=== PATIENT | female | born 1965 | race Caucasian/White ===

== ENCOUNTER → 2020-07-13 10:12 | Outpatient (BNVA) | payer OTHER, SELFPAY | PROVIDERS: PCP Internal Medicine; Visit Provider Hospitalist | DX: Z76.89 Persons encountering health services in other specified circumstances (principal) ==

== ENCOUNTER 2021-07-31 10:47 | Outpatient (REF) | payer OTHER, SELFPAY ==
--- NOTE | ~2021-07-31 | XR_ITS ---
EXAMINATION: XR CHEST CLINICAL INFORMATION: Bronchitis COMPARISON: None TECHNIQUE: 2 views of the chest were obtained. FINDINGS: No significant abnormality is noted involving the heart, lungs, mediastinum, bony thorax or soft tissues. XR/XR chest 2V IMPRESSION: Unremarkable examination.
[2021-07-31 12:10] LABS: MANUAL DIFF FLAG NO
[2021-07-31 12:14] LABS: Basophils Percent Auto 0.6 % (0-2); Eosinophils Absolute Auto 0.1 X10*3/uL (0.0-0.4); Eosinophils Percent Auto 1.6 % (0-4); Hematocrit 31.6 % (37.0-47.0); Imm Gran Abs Auto 0.01 X10*3/uL (0.00-0.03); Imm Gran Pct Auto 0.2 % (0.0-0.4); Lymphocytes Absolute Auto 1.1 X10*3/uL (1.2-4.9); Lymphocytes Percent Auto 22.2 % (20-40); Mean Corpuscular HGB Conc 31.6 g/dl (31.0-35.0); Mean Corpuscular Hemoglobin 26.2 pg (27.0-33.0); Mean Corpuscular Volume 82.7 fL (80.0-98.0); Mean Platelet Volume 10.7 fL (9.4-12.3); Monocytes Absolute Auto 0.3 X10*3/uL (0.1-1.2); Monocytes Percent Auto 5.8 % (2-11); Neutrophils Absolute Auto 3.5 x10*3/uL (2.0-8.3); Neutrophils Percent Auto 69.6 % (45-73); Platelet Count 309 X10*3/uL (160-400); Red Blood Count 3.82 X10*6/uL (4.20-5.50)
[2021-07-31 12:36] LABS: C Reactive Protein 0.26 mg/dL (< or = 0.50)
[2021-08-01 04:20] LABS: SARS COV2 IgG Negative (Negative)
[2021-08-01 06:22] LABS: Immunoglobulin E 2 kU/L (<OR=114)
[2021-08-01 18:31] LABS: Immunoglobulin G Subclass 1 445 mg/dL (382-929); Immunoglobulin G Subclass 2 362 mg/dL (241-700); Immunoglobulin G Subclass 3 53 mg/dL (22-178); Immunoglobulin G Subclass 4 20.5 mg/dL (4-86); Immunoglobulin G Total 927 mg/dL (600-1640)
[2021-08-03 06:51] LABS: Anti DNA DS Antibody <1 IU/mL
== END 2021-07-31 10:48 | disposition home or self-care (01) ==
LOC: HO.XRAY 10:47
PROVIDERS: PCP Internal Medicine; Visit Provider Hospitalist
DX: Z20.822 Contact with and (suspected) exposure to COVID-19 (principal); J30.9 Allergic rhinitis, unspecified; J45.41 Moderate persistent asthma with (acute) exacerbation; J40 Bronchitis, not specified as acute or chronic; M32.9 Systemic lupus erythematosus, unspecified
CPT/HCPCS: 36415; 71046; 82784; 82785; 85025; 86140; 86225; 86769

== ENCOUNTER 2022-02-21 14:31 | Outpatient (REF) | payer OTHER, SELFPAY ==
[2022-02-21 14:58] LABS: MANUAL DIFF FLAG NO
[2022-02-21 15:28] LABS: Basophils Absolute Auto 0.1 X10*3/uL (0.0-0.2); Eosinophils Absolute Auto 0.2 X10*3/uL (0.0-0.4); Eosinophils Percent Auto 3.9 % (0-4); Hematocrit 33.9 % (37.0-47.0); Hemoglobin 10.9 g/dl (12.0-16.0); Imm Gran Abs Auto 0.01 X10*3/uL (0.00-0.03); Imm Gran Pct Auto 0.2 % (0.0-0.4); Lymphocytes Absolute Auto 1.4 X10*3/uL (1.2-4.9); Lymphocytes Percent Auto 26.6 % (20-40); Mean Corpuscular HGB Conc 32.2 g/dl (31.0-35.0); Mean Corpuscular Hemoglobin 26.3 pg (27.0-33.0); Mean Corpuscular Volume 81.9 fL (80.0-98.0); Mean Platelet Volume 11.3 fL (9.4-12.3); Monocytes Absolute Auto 0.3 X10*3/uL (0.1-1.2); Monocytes Percent Auto 6.1 % (2-11); Neutrophils Absolute Auto 3.2 x10*3/uL (2.0-8.3); Neutrophils Percent Auto 62.2 % (45-73); Platelet Count 301 X10*3/uL (160-400); Red Blood Count 4.14 X10*6/uL (4.20-5.50); Red Cell Distribution Width 16.2 % (11.0-16.0); White Blood Count 5.1 X10*3/uL (4.8-10.8)
[2022-02-21 15:45] LABS: D Dimer High Sensitivity < 150 NG/ML
[2022-02-21 15:55] LABS: Anion Gap 16 (12-20); Blood Urea Nitrogen 26 mg/dL (9-16); Calcium 10.2 mg/dL (8.4-10.2); Carbon Dioxide 28 mmol/L (22-29); Chloride 100 mmol/L (96-108); Estimated Glomerular Filt Rate 24; Glucose Random 174 mg/dL (60-115); Potassium 4.6 mmol/L (3.3-5.1); Sodium 139 mmol/L (135-145)
[2022-02-21 16:18] LABS: Erythrocyte Sedimentation Rate 13 MM/HR (0-20)
[2022-02-22 11:47] LABS: Complement C3 84 mg/dL (83-193)
[2022-02-22 13:08] LABS: Anti DNA DS Antibody <1 IU/mL
[2022-02-23 13:25] LABS: SARS COV2 IgG NEGATIVE
[2022-02-24 07:02] LABS: Immunoglobulin E <2 kU/L (<OR=114)
== END 2022-02-21 14:32 | disposition home or self-care (01) ==
LOC: HO.LAB 14:31
PROVIDERS: PCP Internal Medicine; Visit Provider Hospitalist
DX: Z20.822 Contact with and (suspected) exposure to COVID-19 (principal); R07.81 Pleurodynia; R06.00 Dyspnea, unspecified
CPT/HCPCS: 36415; 80048; 82785; 85025; 85379; 85652; 86160; 86225; 86769

== ENCOUNTER 2022-02-22 12:49 | Outpatient (REF) | payer OTHER, SELFPAY ==
--- NOTE | ~2022-02-22 | XR_ITS ---
EXAMINATION: XR CHEST CLINICAL INFORMATION: Dyspnea COMPARISON: 07/31/2021 TECHNIQUE: 2 views of the chest were obtained. FINDINGS: Lungs are well-inflated and clear. Trachea is midline in position. No interstitial disease, consolidation or mass. No pleural effusion or pneumothorax. Cardiac silhouette and pulmonary vessels are normal in size. The mediastinum and mello have normal contour. Mild spondylosis of the thoracic spine. XR/XR chest 2V IMPRESSION: No acute cardiopulmonary abnormality.
== END 2022-02-22 12:50 | disposition home or self-care (01) ==
LOC: HO.XRAY 12:49
PROVIDERS: PCP Internal Medicine; Visit Provider Hospitalist
DX: R07.81 Pleurodynia (principal); R06.00 Dyspnea, unspecified
CPT/HCPCS: 71046

== ENCOUNTER 2022-05-24 16:50 | Emergency (ER) | payer OTHER, SELFPAY ==
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
--- NOTE | 2022-05-24 16:53 | ECG_ITS ---
Test Reason : hypoglycemia Blood Pressure : / mmHG Vent. Rate : 089 BPM Atrial Rate : 089 BPM P-R Int : 142 ms QRS Dur : 062 ms QT Int : 376 ms P-R-T Axes : 061 061 042 degrees QTc Int : 457 ms Normal sinus rhythm Normal ECG No previous ECGs available Referred By: Yina Maria Electronically Signed By:ANNIKA ZARAGOZA MD
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
[2022-05-24 17:00] VITALS: BP 160/96; PULSE 80; O2SAT 97
[2022-05-24 17:01] VITALS: BP 217/97; PULSE 86; RESP 18; O2SAT 99; BMI 28.3
[2022-05-24 17:21] LABS: Glucose, Whole Blood 66 mg/dL (60-115)
[2022-05-24] MEDS: 0.9 % Sodium Chloride 1,000 ML 999 ML IV (17:55)
[2022-05-24 18:06] LABS: Glucose, Whole Blood 64 mg/dL (60-115)
[2022-05-24 18:48] LABS: MANUAL DIFF FLAG NO
[2022-05-24 18:50] LABS: Basophils Absolute Auto 0.1 X10*3/uL (0.0-0.2); Basophils Percent Auto 0.9 % (0-2); Eosinophils Absolute Auto 0.1 X10*3/uL (0.0-0.4); Eosinophils Percent Auto 1.6 % (0-4); Hematocrit 32.4 % (37.0-47.0); Hemoglobin 10.5 g/dl (12.0-16.0); Imm Gran Abs Auto 0.02 X10*3/uL (0.00-0.03); Imm Gran Pct Auto 0.3 % (0.0-0.4); Lymphocytes Absolute Auto 0.8 X10*3/uL (1.2-4.9); Mean Corpuscular HGB Conc 32.4 g/dl (31.0-35.0); Mean Corpuscular Hemoglobin 26.6 pg (27.0-33.0); Mean Corpuscular Volume 82.2 fL (80.0-98.0); Mean Platelet Volume 10.7 fL (9.4-12.3); Monocytes Absolute Auto 0.5 X10*3/uL (0.1-1.2); Neutrophils Absolute Auto 5.6 x10*3/uL (2.0-8.3); Neutrophils Percent Auto 79.2 % (45-73); Platelet Count 247 X10*3/uL (160-400); Red Blood Count 3.94 X10*6/uL (4.20-5.50); Red Cell Distribution Width 16.1 % (11.0-16.0)
[2022-05-24 19:01] LABS: INTERNATIONAL NORM RATIO 0.9 (0.9-1.1); Prothrombin Time 10.3 SEC (10.0-13.1)
[2022-05-24 19:03] VITALS: BP 188/81; PULSE 89; RESP 15; TEMP 37.1; O2SAT 98
[2022-05-24 19:05] LABS: COVID-19 Test Negative (Negative)
[2022-05-24 19:06] LABS: Alanine Aminotransferase 32 U/L (0-31); Albumin Level 4.1 g/dL (3.5-5.0); Alkaline Phosphatase 101 U/L (39-117); Anion Gap 18 (12-20); Aspartate Amino Transferase 38 U/L (5-31); Bilirubin Total 0.4 mg/dL (0.0-1.0); Blood Urea Nitrogen 20 mg/dL (9-16); Calcium 9.4 mg/dL (8.4-10.2); Carbon Dioxide 22 mmol/L (22-29); Chloride 107 mmol/L (96-108); Creatinine Clr Calc Pharmacy 52.4; Estimated Glomerular Filt Rate 44; Glucose Random 74 mg/dL (60-115); Magnesium 1.9 mg/dL (1.6-2.6); Potassium 3.6 mmol/L (3.3-5.1); Sodium 143 mmol/L (135-145); Total Protein 6.5 g/dL (6.5-8.0)
[2022-05-24 19:12] LABS: Glucose, Whole Blood 75 mg/dL (60-115)
[2022-05-24 19:26] LABS: HCG Quantitative 3 mIU/mL
[2022-05-24] MEDS: Ketorolac Tromethamine 15 MG/ML VIAL 30 MG IVPUSH (21:31)
[2022-05-24 21:38] LABS: Troponin-I High Sensitivity < 3.5 ng/L (<3.5-17.0)
[2022-05-24 23:12] VITALS: BP 157/69; PULSE 91; RESP 16; O2SAT 99
== END 2022-05-24 23:15 | disposition home or self-care (01) ==
PROVIDERS: Physician Assistant; Emergency Provider Emergency Medicine
DX: E16.2 Hypoglycemia, unspecified (principal); R42 Dizziness and giddiness; S13.4XXA Sprain of ligaments of cervical spine, initial encounter; S06.0X0A Concussion without loss of consciousness, initial encounter; V43.52XA Car driver injured in collision with other type car in traffic accident, initial encounter; Z20.822 Contact with and (suspected) exposure to COVID-19; Y93.89 Activity, other specified; Y92.414 Local residential or business street as the place of occurrence of the external cause; Y99.9 Unspecified external cause status
CPT/HCPCS: 36415; 70450; 71250; 72125; 74176; 80053; 82947; 83735; 84484; 84702; 85025; 85610; 87635; 93005; 96361; 96374; 99284; 99285; J1885

== ENCOUNTER 2022-05-25 09:46 | Outpatient (REF) | payer OTHER, SELFPAY ==
[2022-05-25 11:07] LABS: Lactate Dehydrogenase 296 U/L (122-220)
[2022-05-25 11:26] LABS: Cortisol Random 8.7 ug/dL
[2022-05-25 11:33] LABS: Erythrocyte Sedimentation Rate 12 MM/HR (0-20)
[2022-05-29 11:16] LABS: Prot Elec - Albumin 4.1 g/dL (3.8-4.8); Prot Elec - Alpha1 0.3 g/dL (0.2-0.3); Prot Elec - Alpha2 0.7 g/dL (0.5-0.9); Prot Elec - Beta 1 0.4 g/dL (0.4-0.6); Prot Elec - Beta 2 0.2 g/dL (0.2-0.5); Prot Elec - Gamma 0.8 g/dL (0.8-1.7); Prot Elec - Total Protein 6.6 g/dL (6.1-8.1)
[2022-05-30 14:41] LABS: IgA 152 mg/dL (47-310); IgG 861 mg/dL (600-1640); IgM 92 mg/dL (50-300)
== END 2022-05-25 09:47 | disposition home or self-care (01) ==
LOC: HO.LAB 09:46
PROVIDERS: Visit Provider Hospitalist
DX: C90.00 Multiple myeloma not having achieved remission (principal)
CPT/HCPCS: 36415; 82533; 82784; 83615; 84165; 85652; 86334

== ENCOUNTER 2022-05-26 11:15 | Outpatient (REF) | payer OTHER, SELFPAY ==
[2022-05-31 10:26] LABS: PEU-Protein Creat Ratio Rand 0.576 (0.024-0.184); PEU-Rand. Prot/Creat Ratio 576 mg/g creat (24-184); PEU-Random Ur. Gamma Globulin 7 %; PEU-Random Urine A1 Globulin 2 %; PEU-Random Urine A2 Globulin 1 %; PEU-Random Urine Albumin 84 %; PEU-Random Urine Beta Globulin 6 %; PEU-Random Urine Creatinine 33 mg/dL (20-275); PEU-Random Urine Protein 19 mg/dL (5-24)
== END 2022-05-26 11:16 | disposition home or self-care (01) ==
LOC: HO.LNP 11:15
PROVIDERS: Visit Provider Hospitalist
DX: C90.00 Multiple myeloma not having achieved remission (principal)
CPT/HCPCS: 82570; 84156; 84166

== ENCOUNTER → 2022-09-07 09:44 | Outpatient (BNVA) | payer OTHER, SELFPAY | PROVIDERS: PCP Internal Medicine; Visit Provider Hospitalist | DX: C90.00 Multiple myeloma not having achieved remission (principal) ==

== ENCOUNTER 2023-03-01 09:51 | Outpatient (AMB) | payer OTHER, SELFPAY ==
[2023-03-01 09:53] VITALS: BP 132/76; PULSE 90; O2SAT 99; BMI 30.4
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
== END 2023-03-01 10:16 | disposition home or self-care (01) ==
PROVIDERS: PCP Internal Medicine; Visit Provider Hospitalist
DX: J45.40 Moderate persistent asthma, uncomplicated (principal); J30.9 Allergic rhinitis, unspecified; M32.9 Systemic lupus erythematosus, unspecified; R06.00 Dyspnea, unspecified; R07.81 Pleurodynia
CPT/HCPCS: 99214

== ENCOUNTER → 2023-03-01 09:51 | Outpatient (BNVA) | payer OTHER, SELFPAY | PROVIDERS: Visit Provider Hospitalist | DX: C90.00 Multiple myeloma not having achieved remission (principal); R07.81 Pleurodynia ==

== ENCOUNTER 2023-05-02 15:40 | Outpatient (AMB) | payer OTHER, SELFPAY ==
[2023-05-02 15:44] VITALS: PULSE 89; O2SAT 98; BMI 30.4
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
== END 2023-05-03 09:25 | disposition home or self-care (01) ==
PROVIDERS: PCP Internal Medicine; Visit Provider Hospitalist
DX: J45.40 Moderate persistent asthma, uncomplicated (principal); J30.9 Allergic rhinitis, unspecified; M32.9 Systemic lupus erythematosus, unspecified; R06.09 Other forms of dyspnea; R07.81 Pleurodynia; U07.1 COVID-19; J01.20 Acute ethmoidal sinusitis, unspecified
CPT/HCPCS: 99214

== ENCOUNTER 2023-05-02 15:40 | Outpatient (REF) | payer OTHER, SELFPAY ==
--- NOTE | ~2023-05-02 | XR_ITS ---
EXAMINATION: XR CHEST CLINICAL INFORMATION: Bronchitis COMPARISON: 02/22/2022 TECHNIQUE: 2 views of the chest were obtained. FINDINGS: No significant abnormality is noted involving the heart, lungs, mediastinum, bony thorax or soft tissues. XR/XR chest 2V IMPRESSION: Unremarkable examination with no interval change.
== END 2023-05-02 15:41 | disposition home or self-care (01) ==
LOC: HO.XRAY 15:40
PROVIDERS: PCP Internal Medicine; Visit Provider Hospitalist
DX: J45.40 Moderate persistent asthma, uncomplicated (principal)
CPT/HCPCS: 71046

== ENCOUNTER 2023-10-11 10:06 | Outpatient (AMB) | payer OTHER, SELFPAY ==
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
[2023-10-11 10:17] VITALS: PULSE 88; O2SAT 96
== END 2023-10-11 10:45 | disposition home or self-care (01) ==
PROVIDERS: PCP Internal Medicine; Visit Provider Hospitalist
DX: J45.40 Moderate persistent asthma, uncomplicated (principal); J30.9 Allergic rhinitis, unspecified; M32.9 Systemic lupus erythematosus, unspecified; R06.09 Other forms of dyspnea; R07.81 Pleurodynia
CPT/HCPCS: 99214

== ENCOUNTER → 2023-10-11 10:06 | Outpatient (BNVA) | payer OTHER, SELFPAY | PROVIDERS: PCP Internal Medicine; Visit Provider Hospitalist | DX: C90.00 Multiple myeloma not having achieved remission (principal); R07.81 Pleurodynia ==

== ENCOUNTER 2024-01-01 10:08 | Outpatient (REF) | payer OTHER, SELFPAY ==
--- NOTE | ~2024-01-01 | CT_ITS ---
EXAMINATION: CT CHEST WITHOUT CONTRAST CLINICAL INFORMATION: Pleurodynia. COMPARISON: CT chest 05/24/2022. TECHNIQUE: Multidetector volumetric CT imaging of the chest was done. Axial MIP volume rendering provided. Sagittal and coronal reformatted images were obtained. This CT examination was performed using dose optimization techniques as appropriate, variously including the following: *Automated exposure control *Adjustment of mA and/or kV according to patient size (this includes techniques or standardized protocols for targeted exams where dose is matched to indication/reason for exam; i.e. extremities or head) *Use of iterative reconstruction technique DLP: 184 mGy-cm FINDINGS: LUNGS: The bibasilar atelectasis/scarring is present similar to prior. Lungs are otherwise clear with no evidence of inflammation or nodules. MEDIASTINUM: The mediastinum is normal. CORONARY ARTERY CALCIFICATION: Moderate PLEURA: There is no pleural effusion. No pleural mass or thickening. AXILLA: No lymphadenopathy. UPPER ABDOMEN: Gallbladder is contracted and contains gallstones without evidence of cholecystitis. OSSEOUS STRUCTURES: The previously mentioned diffusely mottled appearance of the bone marrow with lucent lesions throughout has not shown any progression since 05/24/2022. Scattered lytic areas in the spine are again seen and unchanged when compared to the prior study. No rib fractures are seen. CT/CT chest wo IV con IMPRESSION: 1. A cause for the patient's pleurodynia has not been found. 2. Incidental note made of bibasilar atelectasis/scarring, cholelithiasis and stable mottled appearance of the bone marrow. If concern is high for an underlying malignancy, MRI of the spine would be useful. Fleischner guidelines were followed.
== END 2024-01-01 10:09 | disposition home or self-care (01) ==
LOC: HO.CT 10:08
PROVIDERS: PCP Internal Medicine; Visit Provider Hospitalist
DX: R07.81 Pleurodynia (principal); M32.9 Systemic lupus erythematosus, unspecified
CPT/HCPCS: 71250

== ENCOUNTER 2024-07-14 09:43 | Outpatient (AMB) | payer OTHER, SELFPAY ==
[2024-07-14 09:45] VITALS: BP 138/64; PULSE 84; O2SAT 98; BMI 32.3
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
== END 2024-07-14 10:04 | disposition home or self-care (01) ==
PROVIDERS: PCP Internal Medicine; Visit Provider Hospitalist
DX: J45.40 Moderate persistent asthma, uncomplicated (principal); J30.9 Allergic rhinitis, unspecified; M32.9 Systemic lupus erythematosus, unspecified; R06.09 Other forms of dyspnea; R07.81 Pleurodynia
CPT/HCPCS: 99214

== ENCOUNTER → 2024-07-14 09:43 | Outpatient (BNVA) | payer OTHER, SELFPAY | PROVIDERS: PCP Internal Medicine; Visit Provider Hospitalist ==

== ENCOUNTER 2025-01-12 10:03 | Outpatient (AMB) | payer OTHER, SELFPAY ==
--- OUTSIDE RECORDS SUMMARY | 2024-12-08 11:45 | XMS_ITS ---
Author Organization [facility] Address [address] [place] [address] Care Team Providers Care Armhole Baster Jumpbasting Name Role Phone Liset Andrade Primary Care Provider Cathleen Dyer [phone] Encounters Encounter Location Date Provider Diagnosis [address] [place] [address] 12/08/2024 Cathleen Galeano Plan Of Treatment Next Appt Details Provider Name:Cathleen Galeano , 04/06/2025 04:00:00 PM, [address] [facility], [place], [address], Progress Notes * Venus MONTALVO IDOB: [id number] (59 yo F)Acc No.[id number]:12/08/2024 Progress Note Patient: Venus FITCH I Provider: Nazia Galeano DPM :1965 A ge:59 Y S ex:Female Date:12/08/2024 [address] [facility] [id number] Pcp:Liset Andrade Subjective: * Chief Complaints: * * Medical History: Objective: * Vitals: Assessment: Plan: * Treatment: * Images: * The named appointment provid er may or may not be the originator of this progress note, and it is not deemed complete until electronically signed by the appointment provider. Sign off status: Pending * Provider: Nazia Galeano DPM Date: 0 12/08/2024 Generated for Printi ng/Violetta/Susanneitting on: 0 01/12/2025 11:04 AM EDT
[2025-01-12 10:05] VITALS: BP 116/54; PULSE 87; O2SAT 99; BMI 27.9
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
--- OUTSIDE RECORDS SUMMARY | 2025-01-12 11:04 | XMS_ITS | Encounter Summary ---
Author Organization [facility], Address [address] [place] [address] Phone Care Team Providers Care Medical Transcriber Name Role Phone Liset Andrade MD Primary Care Provider [phone] Encounter Details Date Type Department Care Team (Late st Contact Info) Description 01/08/2024 Documentation Only [facility] [address] [place] [address] Marie Cosme [address] [place] [phone] Social History Tobacco Use Types Packs/Day Years Used Date Smoking Tobacco: Never Smokeless Tobacco: Never Alcohol Use Standard Drinks/Week Comments No 0 (1 standard drink = 0.6 oz pur e alcohol) Comments Unknown Sex and Gender Information Value Date Recorded Sex Assigned at Not on file Legal Sex Female 4:33 PM EST Gender Identity Not on file Sexual Orientation Not on file Occupation Industry Job Start Date Job End Date [employer] Not on file Not on file Not on file documented as of this encounter Plan of Treatment Upcoming Encounters Date Type Department Care Team (Late st Contact Info) Description 07/16/2025 10:15 AM EST [facility] [address] [place] [address] Darren Almanzar MD [address] [place] [phone] documented as of this encounter Visit Diagnoses Not on filedocumented in this encounter Care Teams Medical Transcriber Relationship Specialty Start Date End Date Liset Andrade MD [address] [place] [address], [address] [place] [address] PCP - General 05/19/19 documented as of this encounter
--- OUTSIDE RECORDS SUMMARY | 2025-01-12 11:05 | XMS_ITS | Clinical Summary ---
Author Organization [facility] Address [address] [place] [address] Care Team Providers Care Courtesy Clerk Name Role Phone Liset Andrade MD Primary Care Provider [phone] Allergies Active Allergy Reactions Criticality Noted Date Comments Glatiramer Hives Medium 07/13/2014 Other reaction(s): Other (see comments), Other (See Comments), welts Glatiramer Acetate 06/04/2017 Interferon Beta-1b 10/31/2020 Iodinated Contrast Media Medium 07/10/2017 Other reaction(s): Other (see comments) Pt states iodinated contrast causes vomiting. Iodine 06/05/2021 Other reaction(s): Other (see comments), vomiting Lisinopril 06/04/2017 Other reaction(s): Other (see comments) Sulfa Antibiotics 06/04/2017 Sulfamethoxazole-Trimethopri m 06/05/2021 Other reaction(s): AKA SULFA rapid heart beat, Other (see comments) Sulfasalazine 06/04/2017 Medications Medication Sig Dispensed Refills Start Date End Date Status acetaminophen (TYLENOL EXTRA STRENGTH) 500 MG tablet 2tablet as needed Orally every 6 hrs for 10 days 0 02/15/2020 Active albuterol 108 (90 Base) MCG/ACT inhaler TAKE 2 PUFFS BY MOUTH 4 TIMES A DAY NEEDED FOR SHORTNESS OF BREATH OR WHEEZING 0 06/03/2022 Active atorvastatin (LIPITOR) tablet 10 mg 1 tablet Orally Once a day for 30 day(s) 0 Active budesonide-formote rol (SYMBICORT) 160-4.5 MCG/ACT inhaler Inhale 2 puffs into the lungs. 0 06/04/2017 Active cetirizine (ZyrTEC) 10 MG tablet Take 1 tablet (10 mg total) by mouth daily. 0 04/30/2022 Activ e cevimeline (EVOXAC) 30 MG capsule Take 1 capsule (30 mg total) by mouth 2 (two) times a day. 0 05/03/2022 Active Cholecalciferol 25 MCG (1000 UT) tablet 1,000 Units. 0 Active cyclobenzaprine (FLEXERIL) 10 MG tablet TAKE 1 TABLET BY MOUTH EVERY DAY AT BEDTIME NEEDED FOR MUSCLE SPASM 0 05/25/2022 Active Restasis 0.05 % ophthalmic emulsion Place 1 drop into both eyes 2 (two) times a day. 0 05/20/2022 Active gabapentin (NEURONTIN) 300 MG capsule 1 capsule (300 mg total). 0 02/15/2020 Active hydroxychloroquine (PLAQUENIL) 200 MG tablet 0 06/10/2022 Active ibuprofen 800 MG tablet 1 tablet with food or milk as needed Orally every 8 hrs 0 02/15/2020 Active insulin lispro (HumaLOG) injection 100 units/mL INJECT UP TO 37 UNITS THREE TIMES A DAY SUBCUTANEOUSLY 0 07/08/2014 Active Interferon Beta-1b (Betaseron) 0.3 MG KIT Subcutaneous 0 07/13/2014 Active levothyroxine (SYNTHROID) tablet 100 mcg Take 1 tablet (100 mcg total) by mouth every morning. 0 07/13/2014 Active losartan (COZAAR) tablet 25 mg 1 tablet Orally Once a day 0 07/24/2016 Active montelukast (SINGULAIR) 10 MG tablet Take 1 tablet (10 mg total) by mouth every night at bedtime. 0 05/05/2022 Active omeprazole (PriLOSEC) 20 MG capsule Take 1 capsule (20 mg total) by mouth daily. 0 05/25/2022 Activ e Aubagio 14 MG TABS 0 05/25/2022 Active Active Problems No known active problems Social History Tobacco Use Types Packs/Day Years Used Date Smoking Tobacco: Never Passive Smoke Exposure: Past Smokeless Tobacco: Never Tobacco Cessation:Counseling Given: Not Answered Alcohol Use Standard Drinks/Week Comments Never 0 (1 standard drink = 0.6 oz pur e alcohol) Sex and Gender Information Value Date Recorded Sex Assigned at Not on file Gender Identity Not on file Sexual Orientation Not on file Job Start Date Occupation Industry Not on file Not on file Not on file Last Filed Vital Signs Vital Sign Reading Time Taken Comments Blood Pressure 142/59 07/05/2022 3:53 PM EST Pulse 79 07/05/2022 3:53 PM EST Temperature 36.4 C (97.6 F) 07/05/2022 3:53 PM EST Respiratory Rate - - Oxygen Saturation 99% 07/05/2022 3:53 PM EST Inhaled Oxygen Concentration - - Weight 78 kg (172 lb) 07/05/2022 3:53 PM EST Height - - Body Mass Index - - Plan of Treatment Health Maintenance Due Date Last Done Comments Hepatitis B Vaccines (1 of 3 - 3-dose series) 1965 Hepatitis C Screening 1965 COVID-19 Vaccine (#1) 05/20/1968 Depression Screening 1979 Preventative Health Evaluation 11/17/1985 Cervical Cancer Screening (Pap Smear) 11/17/1988 Colon Cancer Screening (Colonoscopy) 11/17/2012 Breast Cancer Screening (Mammogram) 11/17/2017 DTap / Tdap / Td (2 - Td or Tdap) 07/16/2024 07/16/2014 Influenza Vaccine (Season Ended) 2025 03/17/2022, 03/24/2021, 04/12/2020, Additional history exists Shingrix-Zoster Vaccine Completed 12/19/2019, 08/18 Pneumococcal Vaccine Aged Out 03/05/2021, 02/03/2016, 07/16/2014 No longer eligible based on patient's age to complete this topic RSV Ped < 20 months Aged Out No longe r eligible based on patient's age to complete this topic Care Teams Courtesy Clerk Relationship Specialty Start Date End Date Liset Andrade MD [address] [place] [address] [address] [place] [address] PCP - General Internal Medicine 05/25/22
--- OUTSIDE RECORDS SUMMARY | 2025-01-12 11:05 | XMS_ITS | Clinical Summary ---
[facility] Address [address] [place] [address] Care Team Providers Care Explosives Engineer Name Role Phone Liset Andrade MD Primary Care Provider [phone] Social History Tobacco Use Types Packs/Day Years Used Date Smoking Tobacco: Never Smokeless Tobacco: Never Alcohol Use Standard Drinks/Week Comments Never 0 (1 standard drink = 0.6 oz pur e alcohol) Comments Unknown Sex and Gender Information Value Date Recorded Sex Assigned at Not on file Legal Sex Female 5:41 AM EST Gender Identity Not on file Sexual Orientation Not on file Obstetrics History Last Filed Vital Signs Vital Sign Reading Time Taken Comments Blood Pressure 142/59 07/05/2022 3:53 PM EST Pulse 79 07/05/2022 3:53 PM EST Temperature - - Respiratory Rate - - Oxygen Saturation - - Inhaled Oxygen Concentration - - Weight 78 kg (172 lb) 07/05/2022 3:53 PM EST Height - - Body Mass Index - - Plan of Treatment Health Maintenance Due Date Last Done Comments Breast Cancer Screening 1967 Diabetes: Annual GFR (Glomer ular Filtration Rate) 1967 COVID-19 Vaccine (#1) 11/17/1972 Diabetes: Annual Foot Exam 11/17/1977 Diabetes: Annual Retina Eye Exam 11/17/1977 DTaP,Tdap,and Td Vaccines (1 - Tdap) 11/17/1986 Hepatitis B Vaccines (1 of 3 - 19+ 3-dose series) 11/17/1986 Pneumococcal Vaccine: 50+ Ye ars (1 of 2 - PCV) 11/17/1986 Pneumococcal Vaccine: Pediat rics (0 to 5 Years) and At-Risk Patients (6 to 64 Years) (1 of 2 - PCV) 11/17/1986 Cervical Cancer Screening: P ap Smear 11/17/1988 Zoster Vaccines (1 of 2) 11/17/2017 Cholesterol Screening (Lipid Panel) 06/17/2022 Colorectal Cancer Screening: Colonoscopy 06/17/2022 Depression Screening 06/17/2022 HIV Screening 06/17/2022 Hepatitis C Screening 06/17/2022 Social Influencers of Health Screening 06/17/2022 Diabetes: Annual Urine Albumin-Creatinine Ratio (uACR) 06/27/2022 Diabetes: Blood Sugar Contro l Test (HGBA1C) 06/27/2022 Hypertension/CHF/CAD Annual BMP Blood Test 06/29/2022 Influenza Vaccine (Season Ended) 2025 HIB Vaccines Aged Out No longer eligi ble based on patient's age to complete this topic HPV Vaccines Aged Out No longer eligi ble based on patient's age to complete this topic Hepatitis A Vaccines Aged Out No long er eligible based on patient's age to complete this topic IPV Vaccines Aged Out No longer eligi ble based on patient's age to complete this topic MMR Vaccines Aged Out No longer eligi ble based on patient's age to complete this topic Meningococcal ACWY Vaccine Aged Out N o longer eligible based on patient's age to complete this topic Meningococcal B Vaccine Aged Out No l onger eligible based on patient's age to complete this topic RSV Immunization Patients Un harish 20 months Aged Out No longer eligible b ased on patient's age to complete this topic Varicella Vaccines Aged Out No longer eligible based on patient's age to complete this topic Care Teams Explosives Engineer Relationship Specialty Start Date End Date Liset Andrade MD [address] [place] [address] [address] JUAREZ Ngo PCP - General Internal Medicine 06/04/17
== END 2025-01-12 10:28 | disposition home or self-care (01) ==
LOC: HO.HPS 10:03
PROVIDERS: PCP Internal Medicine; Visit Provider Hospitalist
DX: J45.40 Moderate persistent asthma, uncomplicated (principal); J30.9 Allergic rhinitis, unspecified; M32.9 Systemic lupus erythematosus, unspecified; R06.09 Other forms of dyspnea; R07.81 Pleurodynia
CPT/HCPCS: 99213; G2211